=== PATIENT | female | born 1990 | race Caucasian/White ===

== ENCOUNTER 2016-10-25 11:00 | Emergency (ER) | payer BC, OTHER ==
[~2016-10-25] VITALS: Ht 162.5 cm; Wt 90.7 kg
[~2016-10-25 11:00] MED LIST: AMOXICILLIN500 M3 PO; AMOXICILLIN500 MG PO; AMOXIL500 MG PO; ANAPROX DS550 MG PO; ATIVAN0.5 MG PO; AUGMENTIN 875 M1 TA1 PO; AUGMENTIN 875-875 MG PO; BACTRIM DS 8001 TA1 PO; BACTROBAN2% TP; CEPHALEXIN500 M1 PO; CIPRO250 MG PO; CIPRO500 MG PO; CLINDAMYCIN HC300 MG PO; CORTISPORIN SUS10 ML OT; CYCLOBENZAPRINE10 MG PO; FLAGYL500 MG PO; HYDROCODONE BIT1 T11 PO; KETOROLAC10 MG PO; MACROBID100 M1 PO; MOTRIN800 MG PO; Motrin,Rufen800 MG PO; NAPROSYN500 MG PO; NKHM; NORCO 5-325 TA1 EACH PO; PENICILLIN VK500 MG PO; PERCOCET 325 MG1 TA2 PO; PERCOCET 325 MG1 TA7 PO; PERIDEX118 ML MM; PREDNICOT20 MG PO; PRENATAL1 TA1 PO; PRISTIQ100 MG PO; PRISTIQ50 MG PO; PROCARDIA10 MG; PYRIDIUM200 M1 PO; Peridex 473 ML473 ML PO; ROBAXIN500 MG PO; TOPAMAX25 M3 PO; TRAMADOL HCL50 MG PO; TYLENOL WITH CO1 TA1 PO; TYLENOL325 M1 PO; ULTRAM50 MG PO; VENLAFAXINE H37.5 M5 PO; WYMOX500 MG PO; ZITHROMAX Z PA250 MG PO; ZOFRAN ODT4 MG SL; ZOFRAN4 MG PO; ZOLOFT50 MG PO; Zofran4 MG PO
[2016-10-25] MEDS ORDERED: NORCO 5-325 TA1 EACH PO (11:10)
[2016-10-25] MEDS ORDERED: VRAYLAR3 MG PO (11:11)
[2016-10-25 11:31] LABS: BILIRUBIN NEGATIVE (NEGATIVE); BLOOD 2+ (NEGATIVE); CLARITY SL CLOUDY (CLEAR); COLOR YELLOW (YELLOW); GLUCOSE NEGATIVE (NEGATIVE); KETONE TRACE (NEGATIVE); LEUKO ESTERASE NEGATIVE (NEGATIVE); NITRITE NEGATIVE (NEGATIVE); SPECIFIC GRAVITY 1.025 (1.005-1.030); UROBILINOGEN 0.2 E.U./dl (0.2-1.0)
[2016-10-25 11:40] LABS: MUCOUS 1+; URIC ACID CRYSTALS M
[2016-10-25 11:49] LABS: BASO % 0.4 % (0.0-1.0); EOS # 0.3 10*3/uL (0.0-0.4); EOS % 3.1 % (1.0-4.0); HEMATOCRIT 39.4 % (37.0-47.0); LYMPH # 1.7 10*3/uL (1.3-4.4); LYMPH % 18.3 % (27.0-41.0); MEAN CELL VOLUME 87.8 fl (81.0-99.0); MONO # 0.7 10*3/uL (0.1-1.0); MONO % 7.1 % (3.0-9.0); NEUT # 6.6 10*3/uL (2.3-7.9); NEUT % 70.9 % (47.0-73.0); PLATELET COUNT AUTOMATED 294 10*3/uL (130-400); RED BLOOD COUNT 4.49 10*6/uL (4.10-5.10); RED CELL DISTRI WIDTH 12.6 % (0-14.5); WHITE BLOOD COUNT 9.3 10*3/uL (4.8-10.8)
[2016-10-25 12:04] LABS: ALBUMIN 3.4 gm/dl (3.1-4.5); BUN 9 mg/dl (7-24); CHLORIDE 107 mmol/L (98-107); CREATININE 0.79 mg/dL (0.55-1.02); LIPASE 147 U/L (73-393); SGOT/AST 18 IU/L (3-35); SGPT/ALT 27 U/L (12-78); SODIUM 140 mmol/L (136-145); TOTAL PROTEIN 6.8 gm/dL (6.4-8.2)
[2016-10-25 12:08] LABS: ALKALINE PHOSPHATASE 67 U/L (45-117); CPK 89 U/L (26-192)
[2016-10-25 12:10] LABS: BETA-HCG, QUANT < 1.0 mIU/mL (1-3); CKMB < 0.5 ng/ml (0.5-3.6); TROPONIN I < 0.015 ng/ml (<0.045)
== END 2016-10-25 14:04 | disposition home or self-care (01) ==
LOC: ED 11:00
PROVIDERS: Internal Medicine
DX: R10.12 Left upper quadrant pain (principal); R11.0 Nausea; Z79.899 Other long term (current) drug therapy; F17.200 Nicotine dependence, unspecified, uncomplicated

== ENCOUNTER → 2016-11-06 | Outpatient (CLI) | payer BC, OTHER ==
[~2016-11-06] MED LIST changes: +VRAYLAR3 MG PO
== END | disposition home or self-care (01) ==
LOC: MAMMO 13:18
DX: N63 Unspecified lump in breast (principal)

== ENCOUNTER 2016-12-02 11:48 | Emergency (ER) | payer BC, OTHER ==
[~2016-12-02] VITALS: Wt 90.7 kg
[2016-12-02] MEDS ORDERED: NEURONTIN300 MG PO (11:55)
[2016-12-02] MEDS ORDERED: ARIPIPRAZOLE2 MG PO (11:55)
[2016-12-02 12:24] LABS: BILIRUBIN NEGATIVE (NEGATIVE); BLOOD 1+ (NEGATIVE); CLARITY CLEAR (CLEAR); COLOR YELLOW (YELLOW); GLUCOSE NEGATIVE (NEGATIVE); KETONE NEGATIVE (NEGATIVE); LEUKO ESTERASE NEGATIVE (NEGATIVE); NITRITE NEGATIVE (NEGATIVE); UROBILINOGEN 0.2 E.U./dl (0.2-1.0)
[2016-12-02 12:30] LABS: BASO # 0.1 10*3/uL (0.0-0.1); BASO % 0.5 % (0.0-1.0); EOS # 0.3 10*3/uL (0.0-0.4); HEMATOCRIT 38.3 % (37.0-47.0); HEMOGLOBIN 12.4 g/dl (12.0-16.0); LYMPH # 1.8 10*3/uL (1.3-4.4); LYMPH % 19.8 % (27.0-41.0); MEAN CELL VOLUME 84.5 fl (81.0-99.0); MEAN CORPUSCULAR HGB 27.4 pg (27.0-31.0); MEAN CORPUSCULAR HGB CONC 32.4 g/dl (33.0-37.0); MEAN PLATELET VOLUME 10.3 fl (9.6-12.3); MONO # 0.7 10*3/uL (0.1-1.0); MONO % 7.9 % (3.0-9.0); NEUT # 6.3 10*3/uL (2.3-7.9); NEUT % 68.6 % (47.0-73.0); PLATELET COUNT AUTOMATED 334 10*3/uL (130-400); RED BLOOD COUNT 4.53 10*6/uL (4.10-5.10); RED CELL DISTRI WIDTH 12.6 % (0-14.5); WHITE BLOOD COUNT 9.2 10*3/uL (4.8-10.8)
[2016-12-02 12:33] LABS: BACTERIA 1+
[2016-12-02 12:47] LABS: ALBUMIN 3.1 gm/dl (3.1-4.5); ALKALINE PHOSPHATASE 69 U/L (45-117); BUN 6 mg/dl (7-24); CHLORIDE 107 mmol/L (98-107); CREATININE 0.81 mg/dL (0.55-1.02); LIPASE 106 U/L (73-393); SGOT/AST 12 IU/L (3-35); SGPT/ALT 17 U/L (12-78); SODIUM 139 mmol/L (136-145); TOTAL PROTEIN 6.6 gm/dL (6.4-8.2)
[2016-12-02] MEDS ORDERED: PHENERGAN25 M3 PO (13:56)
[2016-12-02] MEDS ORDERED: FLAGYL500 MG PO (13:56)
[2016-12-02] MEDS ORDERED: CIPRO500 MG PO (13:56)
== END 2016-12-02 14:25 | disposition home or self-care (01) ==
LOC: ED 11:48
PROVIDERS: Physician Assistant
DX: K52.9 Noninfective gastroenteritis and colitis, unspecified (principal); R10.84 Generalized abdominal pain; F17.200 Nicotine dependence, unspecified, uncomplicated; Z90.711 Acquired absence of uterus with remaining cervical stump; Z79.899 Other long term (current) drug therapy

== ENCOUNTER → 2017-01-04 | Day surgery (SDC) | payer BC, OTHER ==
[~2017-01-04] VITALS: Ht 162.5 cm; Wt 90.7 kg
[~2017-01-04] MED LIST changes: +ABILIFY5 MG PO; +ARIPIPRAZOLE2 MG PO; +GAVISCON ES TA1 EACH PO; +NEURONTIN300 MG PO; +PHENERGAN25 M3 PO; +PROTONIX IV40 MG PO; +SUBOXONE 8 MG-1 EACH PO; +VISTARIL50 MG PO
--- NOTE | ~2017-01-04 | O ---
[place], [place] OPERATIVE NOTE NAME: SYLVIA MARK UNIT #: [id number] ROOM: DOCTOR: PARDEEP NASH MD BIRTHDATE: [birth year] DOS: 01/04/2017 GASTROENDOSCOPIC REPORT. INDICATIONS: A 26-year-old patient who has presented with chief complaint of abdominal pain, nausea, vomiting, diarrhea. The patient has been on trial of Cipro and Flagyl therapy. The patient is consuming 4-5 cans of carbonated sodas including Mountain Dew. bowel wall thickening has been reported. She has been taking Zantac periodically, did not help. ALLERGIES: No known medication. FAMILY HISTORY: Noncontributory. PAST SURGICAL HISTORY: Partial hysterectomy, right thumb. PAST MEDICAL HISTORY: Endometriosis. PROCEDURE: Today's procedure part of investigation is colonoscopy, panendoscopy. PREMEDICATION: Versed and Diprivan. SCOPE: Olympus forward-viewing colonoscope 10L video. REPORT: After putting the patient in the left lateral position and after application of lubricant to rectal pouch and digital examination, scope was introduced. Thereafter, under direct visualization, I advanced through the length of colon without difficulty. There is no gross ulceration or pathology; however, the mucosa looks slightly edematous. Therefore, random biopsy from transverse colon, descending colon was obtained. Base of the cecum explored, appendiceal orifice identified, and ileocecal valve was defined. Air was suctioned out. The patient was extubated, tolerated procedure well. IMPRESSION: Normal colonoscopic examination with mild edema of the mucosa, status post biopsy. PLAN AND DISCUSSION: We are going to proceed with panendoscopy. [place], [place] OPERATIVE NOTE NAME: SYLVIA MARK UNIT #: [id number] ROOM: DOCTOR: PARDEEP NASH MD BIRTHDATE: [birth year] PARDEEP NASH MD CM:OPRECORD:OPERATIVE NOTE [id number] RICHELLE NASH MD 01/07/17 0755 [email or web address] [email or web address]
--- NOTE | ~2017-01-04 | O ---
[place], [place] OPERATIVE NOTE NAME: SYLVIA MARK UNIT #: [id number] ROOM: DOCTOR: PARDEEP NASH MD BIRTHDATE: [birth year] DOS: 01/04/2017 GASTROENDOSCOPIC REPORT. INDICATIONS: This is a 26-year-old patient who has presented with chief complaint of epigastric abdominal pain, dyspepsia, has been taking periodic ibuprofen as well as drinking 5 cans of Mountain Dew per day and other carbonated sodas as well as being on Suboxone visits to the Emergency Room with edema of the bowel. PROCEDURE: Today's procedure part of investigation is panendoscopy plus biopsy. PREMEDICATION: Versed and Diprivan. SCOPE: Olympus forward-viewing gastroscope Q10 video. REPORT: After putting the patient in the left lateral position and after application of lubricant to the scope, the scope was introduced; thereafter, under direct visualization, advanced through the length of the esophagus without difficulty. Small hiatal hernia was noticed, bile reflux gastritis seen. Diffuse erosions at the cardia of the stomach was noticed. Antrum was biopsied for H. pylori. Duodenal bulb, second and third part within normal limits. Photographic series have been obtained from the gastric pouch. The patient extubated, tolerated procedure well. IMPRESSION: Bile reflux gastritis, gastric erosions, small hiatal hernia. PLAN AND DISCUSSION: We are going to start this patient on Protonix 40 mg 1 daily, if not agreeable by insurance, then we will switch to omeprazole 40 mg daily. The patient is strictly advised to abstain from smoking and avoiding 5 cans of carbonated soda per day, avoiding ibuprofen and antireflux measures with elevation of the head of the bed. Antacid of choice to be Gaviscon Extra Strength 1 at bedtime, clinical reassessment. Thank you again. [place], [place] OPERATIVE NOTE NAME: SYLVIA MARK UNIT #: [id number] ROOM: DOCTOR: PARDEEP NASH MD BIRTHDATE: [birth year] PARDEEP NASH MD CM:NATANECORD:OPERATIVE NOTE [id number] PARDEEP NASH MD 01/04/17 1216 interface
[2017-01-04 10:00] VITALS: BP 103/54
[2017-01-04 11:30] VITALS: BP 96/60
[2017-01-04 11:45] VITALS: BP 114/60
[2017-01-04 12:00] VITALS: BP 116/64
== END | disposition home or self-care (01) ==
LOC: SDC 00:49
DX: K29.50 Unspecified chronic gastritis without bleeding (principal); K51.90 Ulcerative colitis, unspecified, without complications; K25.9 Gastric ulcer, unspecified as acute or chronic, without hemorrhage or perforation; K44.9 Diaphragmatic hernia without obstruction or gangrene; Z90.710 Acquired absence of both cervix and uterus; Z98.890 Other specified postprocedural states; K21.9 Gastro-esophageal reflux disease without esophagitis; F41.9 Anxiety disorder, unspecified; F32.9 Major depressive disorder, single episode, unspecified; F17.210 Nicotine dependence, cigarettes, uncomplicated; Z91.018 Allergy to other foods

== ENCOUNTER → 2017-07-01 | Outpatient (CLI) | payer BC, OTHER ==
[2017-07-01 09:52] LABS: BASO % 0.4 % (0.0-1.0); EOS # 0.1 10*3/uL (0.0-0.4); HEMATOCRIT 43.4 % (37.0-47.0); LYMPH # 1.6 10*3/uL (1.3-4.4); LYMPH % 22.7 % (27.0-41.0); MEAN CELL VOLUME 89.3 fl (81.0-99.0); MEAN CORPUSCULAR HGB 28.8 pg (27.0-31.0); MEAN CORPUSCULAR HGB CONC 32.3 g/dl (33.0-37.0); MEAN PLATELET VOLUME 11.4 fl (9.6-12.3); MONO # 0.5 10*3/uL (0.1-1.0); NEUT # 4.9 10*3/uL (2.3-7.9); NEUT % 67.6 % (47.0-73.0); PLATELET COUNT AUTOMATED 252 10*3/uL (130-400); RED BLOOD COUNT 4.86 10*6/uL (4.10-5.10); WHITE BLOOD COUNT 7.2 10*3/uL (4.8-10.8)
[2017-07-01 10:04] LABS: ALBUMIN 3.6 gm/dl (3.1-4.5); ALKALINE PHOSPHATASE 67 U/L (45-117); BUN 8 mg/dl (7-24); CHLORIDE 109 mmol/L (98-107); SGOT/AST 14 IU/L (3-35); SGPT/ALT 22 U/L (12-78); SODIUM 142 mmol/L (136-145); TOTAL PROTEIN 6.8 gm/dL (6.4-8.2); URIC ACID 5.8 mg/dL (2.6-6.0)
[2017-07-02 08:10] LABS: RHEUMATOID ARTHRITIS FACTOR <10.0 IU/mL (0.0-13.9)
== END | disposition home or self-care (01) ==
LOC: LAB 09:01
PROVIDERS: Nurse Practitioner Family
DX: M25.50 Pain in unspecified joint (principal); R53.83 Other fatigue

== ENCOUNTER 2017-08-26 19:03 | Emergency (ER) | payer OTHER ==
[~2017-08-26] VITALS: Ht 162.5 cm; Wt 72.6 kg
[2017-08-26] MEDS ORDERED: PREDNISONE10 MG PO (19:10)
[2017-08-26] MEDS ORDERED: LEXAPRO10 MG PO (19:29)
[2017-08-26] MEDS ORDERED: COGENTIN0.5 MG PO (19:30)
== END 2017-08-26 19:32 | disposition home or self-care (01) ==
LOC: ED 19:03
DX: M77.9 Enthesopathy, unspecified (principal); M25.531 Pain in right wrist; R03.0 Elevated blood-pressure reading, without diagnosis of hypertension; Z90.710 Acquired absence of both cervix and uterus; Z98.890 Other specified postprocedural states; Z79.899 Other long term (current) drug therapy; Z91.018 Allergy to other foods

== ENCOUNTER 2017-11-25 17:46 | Emergency (ER) | payer OTHER ==
[~2017-11-25] VITALS: Ht 162.5 cm; Wt 72.6 kg
[~2017-11-25 17:46] MED LIST changes: +COGENTIN0.5 MG PO; +LEXAPRO10 MG PO; +PREDNISONE10 MG PO
[2017-11-25 18:11] LABS: BASO # 0.1 10*3/uL (0.0-0.1); BASO % 0.4 % (0.0-1.0); EOS # 0.2 10*3/uL (0.0-0.4); EOS % 1.4 % (1.0-4.0); HEMATOCRIT 42.2 % (37.0-47.0); HEMOGLOBIN 14.1 g/dl (12.0-16.0); LYMPH # 2.7 10*3/uL (1.3-4.4); LYMPH % 22.2 % (27.0-41.0); MEAN CELL VOLUME 91.3 fl (81.0-99.0); MEAN CORPUSCULAR HGB 30.5 pg (27.0-31.0); MEAN CORPUSCULAR HGB CONC 33.4 g/dl (33.0-37.0); MEAN PLATELET VOLUME 10.4 fl (9.6-12.3); MONO # 0.8 10*3/uL (0.1-1.0); MONO % 6.3 % (3.0-9.0); NEUT # 8.5 10*3/uL (2.3-7.9); NEUT % 69.5 % (47.0-73.0); PLATELET COUNT AUTOMATED 306 10*3/uL (130-400); RED BLOOD COUNT 4.62 10*6/uL (4.10-5.10); RED CELL DISTRI WIDTH 12.5 % (0-14.5); WHITE BLOOD COUNT 12.2 10*3/uL (4.8-10.8)
[2017-11-25 18:13] LABS: BILIRUBIN NEGATIVE (NEGATIVE); BLOOD TRACE-INTACT (NEGATIVE); CLARITY SL CLOUDY (CLEAR); COLOR YELLOW (YELLOW); GLUCOSE NEGATIVE (NEGATIVE); KETONE NEGATIVE (NEGATIVE); LEUKO ESTERASE NEGATIVE (NEGATIVE); NITRITE NEGATIVE (NEGATIVE); UROBILINOGEN 0.2 E.U./dl (0.2-1.0)
[2017-11-25 18:20] LABS: WBC 0-2 wbc/hpf (0-5)
[2017-11-25 18:27] LABS: ALBUMIN 3.8 gm/dl (3.1-4.5); ALKALINE PHOSPHATASE 64 U/L (45-117); BUN 7 mg/dl (7-24); CHLORIDE 108 mmol/L (98-107); LIPASE 124 U/L (73-393); POTASSIUM 3.8 mmol/L (3.5-5.1); SGOT/AST 8 IU/L (3-35); SGPT/ALT 21 U/L (12-78); SODIUM 140 mmol/L (136-145); TOTAL PROTEIN 7.1 gm/dL (6.4-8.2)
[2017-11-25] MEDS ORDERED: ZOFRAN4 MG PO (19:22)
[2017-11-25] MEDS ORDERED: CIPRO500 MG PO (19:22)
[2017-11-25] MEDS ORDERED: FLAGYL500 MG PO (19:22)
== END 2017-11-25 19:40 | disposition home or self-care (01) ==
LOC: ED 17:46
PROVIDERS: Nurse Practitioner Family
DX: R10.32 Left lower quadrant pain (principal); F17.210 Nicotine dependence, cigarettes, uncomplicated; Z91.018 Allergy to other foods; Z88.8 Allergy status to other drugs, medicaments and biological substances; Z79.899 Other long term (current) drug therapy

== ENCOUNTER 2018-01-09 18:15 | Emergency (ER) | payer OTHER ==
[~2018-01-09] VITALS: Ht 162.5 cm; Wt 77.1 kg
[2018-01-09] MEDS ORDERED: NAPROSYN500 MG PO (18:50)
[2018-01-09] MEDS ORDERED: CLINDAMYCIN HC300 MG PO (18:50)
== END 2018-01-09 19:10 | disposition home or self-care (01) ==
LOC: ED 18:15
DX: K08.89 Other specified disorders of teeth and supporting structures (principal); Z91.018 Allergy to other foods; Z79.899 Other long term (current) drug therapy

== ENCOUNTER 2018-06-24 11:40 | Emergency (ER) | payer MEDICAID ==
[~2018-06-24] VITALS: Wt 90.7 kg
[2018-06-24] MEDS ORDERED: AMOXICILLIN500 M2 PO (13:30)
[2018-06-24] MEDS ORDERED: FLONASE ALLERG9.9 ML NAS (13:30)
[2018-06-24] MEDS ORDERED: MEDROL DOSEPAK4 MG PO (13:30)
[2018-06-24] MEDS ORDERED: SUDOGEST60 MG PO (13:30)
== END 2018-06-24 13:35 | disposition home or self-care (01) ==
LOC: ED 11:40
DX: J01.90 Acute sinusitis, unspecified (principal); J20.9 Acute bronchitis, unspecified; F17.200 Nicotine dependence, unspecified, uncomplicated; Z91.018 Allergy to other foods; Z79.2 Long term (current) use of antibiotics; Z79.899 Other long term (current) drug therapy; Z90.710 Acquired absence of both cervix and uterus

== ENCOUNTER 2018-07-18 20:48 | Emergency (ER) | payer OTHER ==
[~2018-07-18] VITALS: Ht 162.5 cm; Wt 88.0 kg
[~2018-07-18 20:48] MED LIST changes: +AMOXICILLIN500 M2 PO; +FLONASE ALLERG9.9 ML NAS; +MEDROL DOSEPAK4 MG PO; +SUDOGEST60 MG PO
[2018-07-18 23:18] LABS: BILIRUBIN NEGATIVE (NEGATIVE); BLOOD 2+ (NEGATIVE); CLARITY CLOUDY (CLEAR); COLOR YELLOW (YELLOW); GLUCOSE NEGATIVE (NEGATIVE); KETONE NEGATIVE (NEGATIVE); LEUKO ESTERASE 1+ (NEGATIVE); NITRITE NEGATIVE (NEGATIVE); PH 5.5 (5.0-9.0); SPECIFIC GRAVITY >= 1.030 (1.005-1.030)
[2018-07-18 23:33] LABS: EPITHELIAL CELLS 35-40; RBC 21-30 rbc/hpf (0-2)
[2018-07-18] MEDS ORDERED: SEPTDS PO (23:37)
[2018-07-18] MEDS ORDERED: PYRIDIUM100 MG PO (23:40)
== END 2018-07-18 23:54 | disposition home or self-care (01) ==
LOC: ED 20:48
PROVIDERS: Physician Assistant
DX: N39.0 Urinary tract infection, site not specified (principal); Z79.899 Other long term (current) drug therapy; Z91.018 Allergy to other foods; Z90.710 Acquired absence of both cervix and uterus; Z87.448 Personal history of other diseases of urinary system

== ENCOUNTER 2018-07-25 21:04 | Emergency (ER) | payer OTHER ==
[~2018-07-25] VITALS: Ht 162.5 cm; Wt 88.0 kg
[~2018-07-25 21:04] MED LIST changes: +PYRIDIUM100 MG PO; +SEPTDS PO
[2018-07-25] MEDS ORDERED: VIBRAMYCIN100 MG PO (22:10)
== END 2018-07-25 22:30 | disposition home or self-care (01) ==
LOC: ED 21:04
DX: S50.361A Insect bite (nonvenomous) of right elbow, initial encounter (principal); Z79.899 Other long term (current) drug therapy; Z91.018 Allergy to other foods; W57.XXXA Bitten or stung by nonvenomous insect and other nonvenomous arthropods, initial encounter; Y93.89 Activity, other specified; Y92.89 Other specified places as the place of occurrence of the external cause; Y99.8 Other external cause status

== ENCOUNTER 2018-09-20 19:35 | Emergency (ER) | payer OTHER ==
[~2018-09-20] VITALS: Ht 162.5 cm; Wt 90.7 kg
[~2018-09-20 19:35] MED LIST changes: +VIBRAMYCIN100 MG PO
[2018-09-20 20:16] LABS: BILIRUBIN NEGATIVE (NEGATIVE); BLOOD TRACE-INTACT (NEGATIVE); CLARITY SL CLOUDY (CLEAR); COLOR ORANGE (YELLOW); GLUCOSE 1+ (NEGATIVE); KETONE TRACE (NEGATIVE); LEUKO ESTERASE 1+ (NEGATIVE); NITRITE POSITIVE (NEGATIVE); PH 6.5 (5.0-9.0); SPECIFIC GRAVITY 1.025 (1.005-1.030); UROBILINOGEN >= 8.0 E.U./dl (0.2-1.0)
[2018-09-20 20:31] LABS: BACTERIA 1+; RBC 0-2 rbc/hpf (0-2); WBC 51-100 wbc/hpf (0-5)
[2018-09-20] MEDS ORDERED: CEFUROXIME AXE500 MG PO (20:38)
[2018-09-20] MEDS ORDERED: PREDNISONE50 MG PO (20:38)
== END 2018-09-20 20:40 | disposition home or self-care (01) ==
LOC: ED 19:35
PROVIDERS: Nurse Practitioner Family
DX: J20.9 Acute bronchitis, unspecified (principal); N39.0 Urinary tract infection, site not specified; F17.200 Nicotine dependence, unspecified, uncomplicated; Z91.018 Allergy to other foods; Z79.899 Other long term (current) drug therapy; Z90.710 Acquired absence of both cervix and uterus

== ENCOUNTER 2018-09-29 17:17 | Emergency (ER) | payer OTHER ==
[~2018-09-29] VITALS: Ht 162.5 cm; Wt 90.7 kg
[~2018-09-29 17:17] MED LIST changes: +CEFUROXIME AXE500 MG PO; +PREDNISONE50 MG PO
== END 2018-09-29 20:05 | disposition home or self-care (01) ==
LOC: ED 17:17
DX: S93.402A Sprain of unspecified ligament of left ankle, initial encounter (principal); S83.92XA Sprain of unspecified site of left knee, initial encounter; Z91.018 Allergy to other foods; Z79.899 Other long term (current) drug therapy; X50.1XXA Overexertion from prolonged static or awkward postures, initial encounter; Y93.01 Activity, walking, marching and hiking; Y92.89 Other specified places as the place of occurrence of the external cause; Y99.8 Other external cause status

== ENCOUNTER 2018-12-11 17:38 | Emergency (ER) | payer OTHER ==
[~2018-12-11] VITALS: Ht 162.5 cm; Wt 90.7 kg
[2018-12-11] MEDS ORDERED: PRISTIQ50 MG PO (17:42)
[2018-12-11] MEDS ORDERED: BENADRYL ALLERG25 M5 PO (17:42)
[2018-12-11] MEDS ORDERED: SUBOXONE 8 MG-1 EACH SL (17:43)
[2018-12-11] MEDS ORDERED: VALERIAN ROOT100 MG PO (17:43)
[2018-12-11 18:12] LABS: BILIRUBIN NEGATIVE (NEGATIVE); BLOOD TRACE-INTACT (NEGATIVE); CLARITY SL CLOUDY (CLEAR); COLOR ORANGE (YELLOW); GLUCOSE 1+ (NEGATIVE); KETONE TRACE (NEGATIVE); LEUKO ESTERASE TRACE (NEGATIVE); NITRITE POSITIVE (NEGATIVE); PH 6.5 (5.0-9.0); UROBILINOGEN >= 8.0 E.U./dl (0.2-1.0)
[2018-12-11 18:25] LABS: BACTERIA TRACE
[2018-12-11 18:26] LABS: RBC 0-2 rbc/hpf (0-2)
[2018-12-11 18:52] LABS: BASO % 0.4 % (0.0-1.0); EOS # 0.1 10*3/uL (0.0-0.4); EOS % 0.9 % (1.0-4.0); HEMATOCRIT 42.7 % (37.0-47.0); HEMOGLOBIN 14.3 g/dl (12.0-16.0); LYMPH % 28.2 % (27.0-41.0); MEAN CELL VOLUME 88.4 fl (81.0-99.0); MEAN CORPUSCULAR HGB 29.6 pg (27.0-31.0); MEAN CORPUSCULAR HGB CONC 33.5 g/dl (33.0-37.0); MEAN PLATELET VOLUME 10.6 fl (9.6-12.3); MONO # 0.6 10*3/uL (0.1-1.0); MONO % 5.7 % (3.0-9.0); NEUT # 6.9 10*3/uL (2.3-7.9); NEUT % 64.5 % (47.0-73.0); PLATELET COUNT AUTOMATED 344 10*3/uL (130-400); RED BLOOD COUNT 4.83 10*6/uL (4.10-5.10); RED CELL DISTRI WIDTH 12.2 % (0-14.5); WHITE BLOOD COUNT 10.6 10*3/uL (4.8-10.8)
[2018-12-11 19:06] LABS: ALBUMIN 3.8 gm/dl (3.1-4.5); ALKALINE PHOSPHATASE 68 U/L (45-117); BUN 5 mg/dl (7-24); CHLORIDE 106 mmol/L (98-107); CREATININE 0.88 mg/dL (0.55-1.02); LIPASE 90 U/L (73-393); SGOT/AST 15 IU/L (3-35); SGPT/ALT 22 U/L (12-78); SODIUM 138 mmol/L (136-145); TOTAL PROTEIN 7.3 gm/dL (6.4-8.2)
[2018-12-11] MEDS ORDERED: AMINOPHYLLIN200 MG PO (21:02)
== END 2018-12-11 21:36 | disposition home or self-care (01) ==
LOC: ED 17:38
PROVIDERS: Nurse Practitioner Family
DX: N39.0 Urinary tract infection, site not specified (principal); R19.4 Change in bowel habit; Z91.018 Allergy to other foods; Z79.899 Other long term (current) drug therapy; Z90.710 Acquired absence of both cervix and uterus

== ENCOUNTER 2019-01-05 20:05 | Emergency (ER) | payer OTHER ==
[~2019-01-05] VITALS: Ht 162.5 cm; Wt 90.7 kg
[~2019-01-05 20:05] MED LIST changes: +AMINOPHYLLIN200 MG PO; +BENADRYL ALLERG25 M5 PO; +SUBOXONE 8 MG-1 EACH SL; +VALERIAN ROOT100 MG PO
[2019-01-05 21:17] LABS: BILIRUBIN NEGATIVE (NEGATIVE); BLOOD NEGATIVE (NEGATIVE); CLARITY CLEAR (CLEAR); COLOR YELLOW (YELLOW); GLUCOSE NEGATIVE (NEGATIVE); KETONE NEGATIVE (NEGATIVE); LEUKO ESTERASE NEGATIVE (NEGATIVE); NITRITE NEGATIVE (NEGATIVE); PH 6.5 (5.0-9.0); UROBILINOGEN 0.2 E.U./dl (0.2-1.0)
[2019-01-05 21:26] LABS: EPITHELIAL CELLS 0-2
[2019-01-05 23:31] LABS: BASO % 0.4 % (0.0-1.0); EOS # 0.2 10*3/uL (0.0-0.4); EOS % 1.9 % (1.0-4.0); HEMATOCRIT 42.3 % (37.0-47.0); HEMOGLOBIN 13.9 g/dl (12.0-16.0); LYMPH # 2.5 10*3/uL (1.3-4.4); LYMPH % 26.8 % (27.0-41.0); MEAN CELL VOLUME 90.6 fl (81.0-99.0); MEAN CORPUSCULAR HGB 29.8 pg (27.0-31.0); MEAN CORPUSCULAR HGB CONC 32.9 g/dl (33.0-37.0); MEAN PLATELET VOLUME 9.9 fl (9.6-12.3); MONO # 0.6 10*3/uL (0.1-1.0); MONO % 6.2 % (3.0-9.0); NEUT # 6.1 10*3/uL (2.3-7.9); NEUT % 64.4 % (47.0-73.0); PLATELET COUNT AUTOMATED 332 10*3/uL (130-400); RED BLOOD COUNT 4.67 10*6/uL (4.10-5.10); RED CELL DISTRI WIDTH 12.5 % (0-14.5); WHITE BLOOD COUNT 9.5 10*3/uL (4.8-10.8)
[2019-01-05 23:45] LABS: ALBUMIN 3.9 gm/dl (3.1-4.5); ALKALINE PHOSPHATASE 61 U/L (45-117); BUN 11 mg/dl (7-24); CHLORIDE 105 mmol/L (98-107); CREATININE 0.79 mg/dL (0.55-1.02); POTASSIUM 3.9 mmol/L (3.5-5.1); SGOT/AST 12 IU/L (3-35); SGPT/ALT 21 U/L (12-78); SODIUM 137 mmol/L (136-145); TOTAL PROTEIN 7.1 gm/dL (6.4-8.2)
== END 2019-01-06 00:01 | disposition home or self-care (01) ==
LOC: ED 20:05
PROVIDERS: Emergency Medicine
DX: N30.10 Interstitial cystitis (chronic) without hematuria (principal); K21.9 Gastro-esophageal reflux disease without esophagitis; Z91.018 Allergy to other foods; Z79.899 Other long term (current) drug therapy

== ENCOUNTER 2019-03-01 19:23 | Emergency (ER) | payer OTHER ==
[~2019-03-01] VITALS: Ht 165.1 cm; Wt 90.7 kg
== END 2019-03-01 21:35 | disposition home or self-care (01) ==
LOC: ED 19:23
DX: S82.892A Other fracture of left lower leg, initial encounter for closed fracture (principal); M25.572 Pain in left ankle and joints of left foot; Z91.018 Allergy to other foods; Z79.899 Other long term (current) drug therapy; W10.8XXA Fall (on) (from) other stairs and steps, initial encounter; Y93.89 Activity, other specified; Y92.89 Other specified places as the place of occurrence of the external cause; Y99.8 Other external cause status

== ENCOUNTER 2019-06-04 15:44 | Inpatient (IN) | payer OTHER ==
[~2019-06-04] VITALS: Ht 162.6 cm; Wt 93.4 kg
[2019-06-04 15:56] VITALS: BP 121/73
[2019-06-04 16:34] LABS: BASO # 0.1 10*3/uL (0.0-0.1); BASO % 0.3 % (0.0-1.0); EOS % 0.1 % (1.0-4.0); HEMATOCRIT 39.5 % (37.0-47.0); HEMOGLOBIN 13.4 g/dl (12.0-16.0); LYMPH % 6.3 % (27.0-41.0); MEAN CORPUSCULAR HGB 29.5 pg (27.0-31.0); MEAN CORPUSCULAR HGB CONC 33.9 g/dl (33.0-37.0); MEAN PLATELET VOLUME 10.7 fl (9.6-12.3); MONO # 1.3 10*3/uL (0.1-1.0); MONO % 8.7 % (3.0-9.0); NEUT % 84.3 % (47.0-73.0); PLATELET COUNT AUTOMATED 304 10*3/uL (130-400); RED BLOOD COUNT 4.54 10*6/uL (4.10-5.10); RED CELL DISTRI WIDTH 12.1 % (0-14.5); WHITE BLOOD COUNT 15.5 10*3/uL (4.8-10.8)
[2019-06-04 16:49] LABS: ALBUMIN 3.5 gm/dl (3.1-4.5); ALKALINE PHOSPHATASE 74 U/L (45-117); BUN 8 mg/dl (7-24); CHLORIDE 105 mmol/L (98-107); LDH 175 U/L (84-246); LIPASE 44 U/L (73-393); POTASSIUM 3.4 mmol/L (3.5-5.1); SGOT/AST 18 IU/L (3-35); SGPT/ALT 31 U/L (12-78); SODIUM 134 mmol/L (136-145); TOTAL PROTEIN 7.9 gm/dL (6.4-8.2)
[2019-06-04 16:50] LABS: B-hCG (QUALITATIVE) NEGATIVE (NEGATIVE)
[2019-06-04 16:56] LABS: BILIRUBIN NEGATIVE (NEGATIVE); BLOOD 2+ (NEGATIVE); CLARITY CLOUDY (CLEAR); COLOR YELLOW (YELLOW); GLUCOSE NEGATIVE (NEGATIVE); KETONE 1+ (NEGATIVE); LEUKO ESTERASE 2+ (NEGATIVE); NITRITE POSITIVE (NEGATIVE); SPECIFIC GRAVITY 1.005 (1.005-1.030); UROBILINOGEN 0.2 E.U./dl (0.2-1.0)
[2019-06-04 17:00] LABS: ACT PARTIAL THROMBO TIME 28.6 SECONDS (20.0-32.1)
[2019-06-04 17:02] LABS: URINE AMPHETAMINES < 1000 (1000ng/ml); URINE BARBITURATES < 200 (200ng/ml); URINE BENZODIAZEPINES < 200 (200ng/ml); URINE CANNABINOIDS (THC) > 50 (50ng/ml); URINE COCAINE < 300 (300ng/ml); URINE METHADONE < 300 (300ng/ml); URINE OPIATES < 300 (300ng/ml)
[2019-06-04 17:03] LABS: URINE PHENCYCLIDINE < 25 (25ng/ml)
[2019-06-04 17:05] LABS: BACTERIA 2+; WBC TNTC wbc/hpf (0-5)
[2019-06-04 19:50] VITALS: BP 120/70
[2019-06-04 20:00] VITALS: BP 123/86
[2019-06-04] MEDS ORDERED: OXCARBAZEPINE300 M1 PO (20:08)
[2019-06-04] MEDS ORDERED: MIRTAZAPINE15 M2 PO (20:09)
[2019-06-04] MEDS ORDERED: QUETIAPINE FUM100 M3 PO (20:09)
[2019-06-05] VITALS: BP 121/54
[2019-06-05 06:10] LABS: BASO % 0.3 % (0.0-1.0); EOS % 0.3 % (1.0-4.0); HEMATOCRIT 34.1 % (37.0-47.0); HEMOGLOBIN 11.1 g/dl (12.0-16.0); LYMPH # 1.2 10*3/uL (1.3-4.4); LYMPH % 10.4 % (27.0-41.0); MEAN CELL VOLUME 87.9 fl (81.0-99.0); MEAN CORPUSCULAR HGB 28.6 pg (27.0-31.0); MEAN CORPUSCULAR HGB CONC 32.6 g/dl (33.0-37.0); MEAN PLATELET VOLUME 10.8 fl (9.6-12.3); MONO # 1.2 10*3/uL (0.1-1.0); MONO % 10.3 % (3.0-9.0); NEUT # 9.1 10*3/uL (2.3-7.9); NEUT % 78.4 % (47.0-73.0); PLATELET COUNT AUTOMATED 250 10*3/uL (130-400); RED BLOOD COUNT 3.88 10*6/uL (4.10-5.10); RED CELL DISTRI WIDTH 12.2 % (0-14.5); WHITE BLOOD COUNT 11.6 10*3/uL (4.8-10.8)
[2019-06-05 06:46] LABS: ALBUMIN 2.8 gm/dl (3.1-4.5); ALKALINE PHOSPHATASE 82 U/L (45-117); BUN 9 mg/dl (7-24); CHLORIDE 110 mmol/L (98-107); CHOLESTEROL 148 mg/dL (<200); CREATININE 1.08 mg/dL (0.55-1.02); FREE T4 1.03 ng/dl (0.76-1.46); HDL CHOLESTEROL 23 mg/dl (40-60); LDL CHOLESTEROL 100 mg/dL (9-159); PHOSPHOROUS 2.1 mg/dL (2.5-4.9); POTASSIUM 3.2 mmol/L (3.5-5.1); SGOT/AST 71 IU/L (3-35); SGPT/ALT 58 U/L (12-78); SODIUM 140 mmol/L (136-145); TOTAL PROTEIN 6.3 gm/dL (6.4-8.2); TRIGLYCERIDES 123 mg/dl (<150); VLDL CHOLESTEROL 25 mg/dL (6-40)
[2019-06-05 07:08] LABS: VITAMIN D, 25-HYDROXY 17.1 ng/mL (30-100)
[2019-06-05 08:00] VITALS: BP 119/66
[2019-06-05 12:00] VITALS: BP 103/43
[2019-06-05 16:00] VITALS: BP 117/65
[2019-06-05 20:00] VITALS: BP 124/68
[2019-06-06] VITALS: BP 121/86
[2019-06-06 06:06] LABS: BASO # 0.1 10*3/uL (0.0-0.1); BASO % 0.5 % (0.0-1.0); EOS # 0.2 10*3/uL (0.0-0.4); EOS % 1.9 % (1.0-4.0); HEMATOCRIT 35.4 % (37.0-47.0); HEMOGLOBIN 11.7 g/dl (12.0-16.0); LYMPH # 1.8 10*3/uL (1.3-4.4); LYMPH % 16.7 % (27.0-41.0); MEAN CELL VOLUME 88.9 fl (81.0-99.0); MEAN CORPUSCULAR HGB 29.4 pg (27.0-31.0); MEAN CORPUSCULAR HGB CONC 33.1 g/dl (33.0-37.0); MEAN PLATELET VOLUME 10.9 fl (9.6-12.3); MONO # 1.2 10*3/uL (0.1-1.0); MONO % 11.6 % (3.0-9.0); NEUT # 7.3 10*3/uL (2.3-7.9); PLATELET COUNT AUTOMATED 264 10*3/uL (130-400); RED BLOOD COUNT 3.98 10*6/uL (4.10-5.10); RED CELL DISTRI WIDTH 12.3 % (0-14.5); WHITE BLOOD COUNT 10.5 10*3/uL (4.8-10.8)
[2019-06-06 06:35] LABS: BUN 7 mg/dl (7-24); CHLORIDE 111 mmol/L (98-107); CREATININE 0.85 mg/dL (0.55-1.02); POTASSIUM 3.4 mmol/L (3.5-5.1); SODIUM 143 mmol/L (136-145)
[2019-06-06] MEDS ORDERED: VITAMIN D350 MC2 PO (07:58)
[2019-06-06] MEDS ORDERED: CIPRO500 MG PO (07:58)
[2019-06-06] MEDS ORDERED: PHARMASSURE V500 MCG PO (07:58)
[2019-06-06] MEDS ORDERED: ZOFRAN4 MG PO (07:58)
[2019-06-06 08:00] VITALS: BP 124/76
== END 2019-06-06 09:50 | disposition home or self-care (01) | DRG 872 ==
LOC: ED 15:44 → 4E 18:01 → EDHOLD 18:01 → 4E 18:45
PROVIDERS: Emergency Medicine; Hospitalist; ADMIT Internal Medicine
DX: A41.9 Sepsis, unspecified organism (principal); K51.919 Ulcerative colitis, unspecified with unspecified complications; N12 Tubulo-interstitial nephritis, not specified as acute or chronic; E87.6 Hypokalemia; R79.89 Other specified abnormal findings of blood chemistry; F17.210 Nicotine dependence, cigarettes, uncomplicated; F41.9 Anxiety disorder, unspecified; F31.9 Bipolar disorder, unspecified; B96.20 Unspecified Escherichia coli [E. coli] as the cause of diseases classified elsewhere; F12.90 Cannabis use, unspecified, uncomplicated; Z71.6 Tobacco abuse counseling; Z90.710 Acquired absence of both cervix and uterus; Z91.018 Allergy to other foods; Z79.899 Other long term (current) drug therapy; Z80.52 Family history of malignant neoplasm of bladder; Z83.79 Family history of other diseases of the digestive system; Z83.6 Family history of other diseases of the respiratory system

== ENCOUNTER 2019-12-17 19:14 | Emergency (ER) | payer OTHER ==
[~2019-12-17] VITALS: Ht 162.5 cm; Wt 90.7 kg
[~2019-12-17 19:14] MED LIST changes: +MIRTAZAPINE15 M2 PO; +OXCARBAZEPINE300 M1 PO; +PHARMASSURE V500 MCG PO; +QUETIAPINE FUM100 M3 PO; +VITAMIN D350 MC2 PO
[2019-12-17] MEDS ORDERED: REXULTI1 MG PO (19:27)
[2019-12-17] MEDS ORDERED: GABAPENTIN400 MG PO (19:27)
[2019-12-17] MEDS ORDERED: SEPTDS PO (19:30)
== END 2019-12-17 19:58 | disposition home or self-care (01) ==
LOC: ED 19:14
DX: L02.215 Cutaneous abscess of perineum (principal); F32.9 Major depressive disorder, single episode, unspecified; F41.9 Anxiety disorder, unspecified; K21.9 Gastro-esophageal reflux disease without esophagitis; F17.200 Nicotine dependence, unspecified, uncomplicated; Z91.018 Allergy to other foods; Z79.899 Other long term (current) drug therapy

== ENCOUNTER 2020-06-16 16:55 | Emergency (ER) | payer OTHER ==
[~2020-06-16] VITALS: Ht 162.5 cm; Wt 90.7 kg
[~2020-06-16 16:55] MED LIST changes: +GABAPENTIN400 MG PO; +REXULTI1 MG PO
[2020-06-16 17:28] LABS: BILIRUBIN Negative (Negative); BLOOD 2+ (Negative); CLARITY Clear (Clear); COLOR Yellow (Yellow); GLUCOSE Negative (Negative); KETONE Trace (Negative); LEUKO ESTERASE Negative (Negative); NITRITE Negative (Negative); PH 5.5 (4.5-8.0); UROBILINOGEN 0.2 E.U./dl (0.0-1.0)
[2020-06-16 17:44] LABS: BACTERIA TRACE; MUCOUS 1+
[2020-06-16 18:48] LABS: BASO % 0.4 % (0.0-1.0); EOS # 0.2 10*3/uL (0.0-0.4); EOS % 2.3 % (1.0-4.0); HEMATOCRIT 40.5 % (37.0-47.0); LYMPH # 2.4 10*3/uL (1.3-4.4); MEAN CELL VOLUME 91.2 fl (81.0-99.0); MEAN CORPUSCULAR HGB CONC 32.8 g/dl (33.0-37.0); MEAN PLATELET VOLUME 10.2 fl (9.6-12.3); MONO # 0.7 10*3/uL (0.1-1.0); MONO % 7.1 % (3.0-9.0); NEUT # 6.2 10*3/uL (2.3-7.9); NEUT % 64.9 % (47.0-73.0); PLATELET COUNT AUTOMATED 286 10*3/uL (130-400); RED BLOOD COUNT 4.44 10*6/uL (4.10-5.10); RED CELL DISTRI WIDTH 12.7 % (0-14.5); WHITE BLOOD COUNT 9.5 10*3/uL (4.8-10.8)
[2020-06-16 19:05] LABS: ALBUMIN 3.6 gm/dl (3.1-4.5); ALKALINE PHOSPHATASE 67 U/L (45-117); BUN 11 mg/dl (7-24); CHLORIDE 105 mmol/L (98-107); CREATININE 1.07 mg/dL (0.55-1.02); LIPASE 86 U/L (73-393); POTASSIUM 3.5 mmol/L (3.5-5.1); SGOT/AST 15 IU/L (3-35); SGPT/ALT 23 U/L (12-78); SODIUM 139 mmol/L (136-145); TOTAL PROTEIN 6.8 gm/dL (6.4-8.2)
[2020-06-16 19:14] LABS: BETA-HCG, QUANT < 1.0 mIU/mL (1-3)
[2020-06-16] MEDS ORDERED: VIBRAMYCIN100 MG PO ×2 (21:56→22:15)
== END 2020-06-16 22:00 | disposition home or self-care (01) ==
LOC: ED 16:55
PROVIDERS: Emergency Medicine
DX: R30.0 Dysuria (principal); Z79.899 Other long term (current) drug therapy; Z90.711 Acquired absence of uterus with remaining cervical stump; Z98.890 Other specified postprocedural states

== ENCOUNTER → 2020-06-24 | Outpatient (CLI) | payer OTHER | END | disposition home or self-care (01) | LOC: COVID19 14:44 | PROVIDERS: ATTEND Internal Medicine | DX: Z11.52 Encounter for screening for COVID-19 (principal) ==

== ENCOUNTER 2020-07-05 19:46 | Emergency (ER) | payer OTHER ==
[~2020-07-05] VITALS: Ht 162.5 cm; Wt 90.7 kg
[2020-07-05 22:53] LABS: BASO % 0.2 % (0.0-1.0); EOS # 0.1 10*3/uL (0.0-0.4); EOS % 0.6 % (1.0-4.0); HEMATOCRIT 42.6 % (37.0-47.0); LYMPH # 1.5 10*3/uL (1.3-4.4); MEAN CELL VOLUME 88.2 fl (81.0-99.0); MEAN CORPUSCULAR HGB 29.6 pg (27.0-31.0); MEAN CORPUSCULAR HGB CONC 33.6 g/dl (33.0-37.0); MEAN PLATELET VOLUME 10.2 fl (9.6-12.3); MONO # 0.7 10*3/uL (0.1-1.0); MONO % 8.6 % (3.0-9.0); NEUT # 6.3 10*3/uL (2.3-7.9); NEUT % 73.2 % (47.0-73.0); PLATELET COUNT AUTOMATED 264 10*3/uL (130-400); RED BLOOD COUNT 4.83 10*6/uL (4.10-5.10); RED CELL DISTRI WIDTH 12.7 % (0-14.5); WHITE BLOOD COUNT 8.5 10*3/uL (4.8-10.8)
[2020-07-05 23:10] LABS: ALBUMIN 3.9 gm/dl (3.1-4.5); ALKALINE PHOSPHATASE 66 U/L (45-117); BUN 6 mg/dl (7-24); CHLORIDE 107 mmol/L (98-107); CREATININE 0.81 mg/dL (0.55-1.02); LDH 174 U/L (84-246); POTASSIUM 3.5 mmol/L (3.5-5.1); SGOT/AST 14 IU/L (3-35); SGPT/ALT 26 U/L (12-78); SODIUM 140 mmol/L (136-145); TOTAL PROTEIN 7.5 gm/dL (6.4-8.2)
[2020-07-05 23:11] LABS: TROPONIN I < 0.015 ng/ml (<0.045)
[2020-07-06] MEDS ORDERED: ZOFRAN4 MG PO (00:14)
== END 2020-07-06 01:49 | disposition home or self-care (01) ==
LOC: ED 19:46
PROVIDERS: Student in an Organized Health Care Education/Training Program
DX: U07.1 COVID-19 (principal); R11.2 Nausea with vomiting, unspecified; F12.90 Cannabis use, unspecified, uncomplicated; F17.200 Nicotine dependence, unspecified, uncomplicated; Z90.710 Acquired absence of both cervix and uterus; Z79.899 Other long term (current) drug therapy

== ENCOUNTER 2020-08-16 00:12 | Emergency (ER) | payer OTHER ==
[~2020-08-16] VITALS: Ht 162.5 cm; Wt 90.7 kg
[2020-08-16 00:53] LABS: BASO # 0.1 10*3/uL (0.0-0.1); BASO % 0.5 % (0.0-1.0); EOS # 0.3 10*3/uL (0.0-0.4); EOS % 3.3 % (1.0-4.0); LYMPH # 2.7 10*3/uL (1.3-4.4); LYMPH % 27.7 % (27.0-41.0); MEAN CELL VOLUME 89.9 fl (81.0-99.0); MEAN CORPUSCULAR HGB 29.7 pg (27.0-31.0); MEAN CORPUSCULAR HGB CONC 33.1 g/dl (33.0-37.0); MEAN PLATELET VOLUME 10.7 fl (9.6-12.3); MONO # 0.6 10*3/uL (0.1-1.0); MONO % 6.6 % (3.0-9.0); NEUT # 5.9 10*3/uL (2.3-7.9); NEUT % 61.7 % (47.0-73.0); PLATELET COUNT AUTOMATED 302 10*3/uL (130-400); RED BLOOD COUNT 4.34 10*6/uL (4.10-5.10); RED CELL DISTRI WIDTH 12.5 % (0-14.5); WHITE BLOOD COUNT 9.6 10*3/uL (4.8-10.8)
[2020-08-16 01:15] LABS: ALBUMIN 3.7 gm/dl (3.1-4.5); ALKALINE PHOSPHATASE 70 U/L (45-117); BUN 10 mg/dl (7-24); CHLORIDE 107 mmol/L (98-107); CREATININE 1.08 mg/dL (0.55-1.02); POTASSIUM 3.7 mmol/L (3.5-5.1); SGOT/AST 16 IU/L (3-35); SGPT/ALT 20 U/L (12-78); SODIUM 140 mmol/L (136-145); TOTAL PROTEIN 6.7 gm/dL (6.4-8.2)
[2020-08-16] MEDS ORDERED: PREDNISONE20 M1 PO (01:44)
== END 2020-08-16 02:15 | disposition home or self-care (01) ==
LOC: ED 00:12
PROVIDERS: Internal Medicine
DX: J04.0 Acute laryngitis (principal); F17.200 Nicotine dependence, unspecified, uncomplicated; Z79.2 Long term (current) use of antibiotics; Z79.899 Other long term (current) drug therapy; Z90.711 Acquired absence of uterus with remaining cervical stump

== ENCOUNTER 2021-06-06 00:04 | Emergency (ER) | payer OTHER ==
[~2021-06-06] VITALS: Ht 162.5 cm; Wt 81.6 kg
[~2021-06-06 00:04] MED LIST changes: +PREDNISONE20 M1 PO
[2021-06-06] MEDS ORDERED: VIBRAMYCIN100 MG PO (02:45)
== END 2021-06-06 02:51 | disposition home or self-care (01) ==
LOC: ED 00:04
DX: J02.9 Acute pharyngitis, unspecified (principal); Z20.2 Contact with and (suspected) exposure to infections with a predominantly sexual mode of transmission; F17.200 Nicotine dependence, unspecified, uncomplicated; Z90.711 Acquired absence of uterus with remaining cervical stump; Z98.890 Other specified postprocedural states; Z79.899 Other long term (current) drug therapy

== ENCOUNTER 2021-10-20 13:20 | Emergency (ER) | payer OTHER ==
[~2021-10-20] VITALS: Ht 162.5 cm; Wt 92.1 kg
[2021-10-20 14:18] LABS: BASO % 0.3 % (0.0-1.0); EOS # 0.2 10*3/uL (0.0-0.4); HEMATOCRIT 41.4 % (37.0-47.0); LYMPH # 1.4 10*3/uL (1.3-4.4); LYMPH % 16.1 % (27.0-41.0); MEAN CELL VOLUME 91.6 fl (81.0-99.0); MEAN CORPUSCULAR HGB 31.6 pg (27.0-31.0); MEAN CORPUSCULAR HGB CONC 34.5 g/dl (33.0-37.0); MONO # 0.7 10*3/uL (0.1-1.0); MONO % 8.2 % (3.0-9.0); NEUT # 6.5 10*3/uL (2.3-7.9); NEUT % 73.2 % (47.0-73.0); PLATELET COUNT AUTOMATED 311 10*3/uL (130-400); RED BLOOD COUNT 4.52 10*6/uL (4.10-5.10); RED CELL DISTRI WIDTH 11.3 % (0-14.5); WHITE BLOOD COUNT 8.9 10*3/uL (4.8-10.8)
[2021-10-20 14:40] LABS: ACT PARTIAL THROMBO TIME 29.8 SECONDS (20.0-32.1)
[2021-10-20 14:45] LABS: ALKALINE PHOSPHATASE 74 U/L (45-117); BUN 6 mg/dl (7-24); CHLORIDE 103 mmol/L (98-107); CREATININE 0.79 mg/dL (0.55-1.02); POTASSIUM 3.9 mmol/L (3.5-5.1); SGOT/AST 13 IU/L (3-35); SGPT/ALT 20 U/L (12-78); SODIUM 135 mmol/L (136-145); TOTAL PROTEIN 7.6 gm/dL (6.4-8.2)
== END 2021-10-20 15:18 | disposition home or self-care (01) ==
LOC: ED 13:20
PROVIDERS: Emergency Medicine
DX: K29.70 Gastritis, unspecified, without bleeding (principal); R19.7 Diarrhea, unspecified; F41.9 Anxiety disorder, unspecified; F31.9 Bipolar disorder, unspecified; Z79.2 Long term (current) use of antibiotics; Z79.899 Other long term (current) drug therapy; Z90.710 Acquired absence of both cervix and uterus; Z87.891 Personal history of nicotine dependence

== ENCOUNTER 2021-10-22 22:23 | Emergency (ER) | payer OTHER ==
[~2021-10-22] VITALS: Wt 90.7 kg
[2021-10-22 23:57] LABS: BASO % 0.3 % (0.0-1.0); EOS % 0.5 % (1.0-4.0); LYMPH # 1.4 10*3/uL (1.3-4.4); LYMPH % 20.8 % (27.0-41.0); MEAN CORPUSCULAR HGB 31.7 pg (27.0-31.0); MEAN CORPUSCULAR HGB CONC 33.3 g/dl (33.0-37.0); MEAN PLATELET VOLUME 10.2 fl (9.6-12.3); MONO # 0.7 10*3/uL (0.1-1.0); MONO % 10.1 % (3.0-9.0); NEUT # 4.5 10*3/uL (2.3-7.9); NEUT % 68.1 % (47.0-73.0); PLATELET COUNT AUTOMATED 260 10*3/uL (130-400); RED BLOOD COUNT 4.42 10*6/uL (4.10-5.10); RED CELL DISTRI WIDTH 11.3 % (0-14.5); WHITE BLOOD COUNT 6.5 10*3/uL (4.8-10.8)
[2021-10-23 00:12] LABS: ALKALINE PHOSPHATASE 63 U/L (45-117); BUN 8 mg/dl (7-24); CHLORIDE 104 mmol/L (98-107); CREATININE 0.89 mg/dL (0.55-1.02); POTASSIUM 4.3 mmol/L (3.5-5.1); SGOT/AST 11 IU/L (3-35); SGPT/ALT 17 U/L (12-78); SODIUM 137 mmol/L (136-145); TOTAL PROTEIN 7.2 gm/dL (6.4-8.2)
[2021-10-23 01:19] LABS: BILIRUBIN Negative (Negative); BLOOD 1+ (Negative); CLARITY Clear (Clear); COLOR Yellow (Yellow); GLUCOSE Negative (Negative); KETONE Trace (Negative); LEUKO ESTERASE Negative (Negative); NITRITE Negative (Negative); PH 5.5 (4.5-8.0); UROBILINOGEN 0.2 E.U./dl (0.0-1.0)
[2021-10-23 01:33] LABS: RBC 0-2 rbc/hpf (0-2); WBC 0-2 wbc/hpf (0-5)
== END 2021-10-23 06:42 | disposition home or self-care (01) ==
LOC: ED 22:23
PROVIDERS: Emergency Medicine
DX: U07.1 COVID-19 (principal); R19.7 Diarrhea, unspecified; Z79.899 Other long term (current) drug therapy; Z90.710 Acquired absence of both cervix and uterus; Z98.890 Other specified postprocedural states; Z87.891 Personal history of nicotine dependence

== ENCOUNTER 2023-09-26 12:41 | Emergency (ER) | payer OTHER ==
[~2023-09-26] VITALS: Ht 162.5 cm; Wt 95.3 kg
[2023-09-26] MEDS ORDERED: KLONOPIN1 M1 PO (14:52)
[2023-09-26] MEDS ORDERED: PILOCARPINE HCL5 MG PO (14:53)
[2023-09-26] MEDS ORDERED: ADDERALL 30 MG30 MG PO (14:54)
[2023-09-26] MEDS ORDERED: Ketorolac Tromethamine 15 MG/ML VIAL IV ONE (15:05)
[2023-09-26] MEDS ORDERED: SODIUM CHLORIDE 0.9% 1,000 ML IV ONE (15:05)
[2023-09-26 15:24] LABS: BILIRUBIN Negative (Negative); BLOOD Trace-Lysed (Negative); CLARITY Clear (Clear); COLOR Yellow (Yellow); GLUCOSE Negative (Negative); KETONE Negative (Negative); LEUKO ESTERASE Negative (Negative); NITRITE Negative (Negative); PH 5.5 (4.5-8.0); SPECIFIC GRAVITY 1.015 (1.001-1.030)
[2023-09-26 15:38] LABS: BASO % 0.5 % (0.0-1.0); EOS # 0.2 10*3/uL (0.0-0.4); EOS % 2.4 % (1.0-4.0); HEMATOCRIT 41.7 % (37.0-47.0); LYMPH # 1.5 10*3/uL (1.3-4.4); LYMPH % 20.5 % (27.0-41.0); MEAN CELL VOLUME 93.1 fl (81.0-99.0); MEAN CORPUSCULAR HGB 31.9 pg (27.0-31.0); MEAN CORPUSCULAR HGB CONC 34.3 g/dl (33.0-37.0); MEAN PLATELET VOLUME 9.9 fl (9.6-12.3); MONO # 0.5 10*3/uL (0.1-1.0); MONO % 6.1 % (3.0-9.0); NEUT # 5.3 10*3/uL (2.3-7.9); NEUT % 70.4 % (47.0-73.0); PLATELET COUNT AUTOMATED 289 10*3/uL (130-400); RED BLOOD COUNT 4.48 10*6/uL (4.10-5.10); RED CELL DISTRI WIDTH 13.4 % (0-14.5); WHITE BLOOD COUNT 7.5 10*3/uL (4.8-10.8)
[2023-09-26 15:39] LABS: WBC 0-2 wbc/hpf (0-5)
[2023-09-26 15:57] LABS: BUN 7 mg/dl (9-23); CHLORIDE 109 mmol/L (98-107); POTASSIUM 3.6 mmol/L (3.4-5.1)
[2023-09-26] MEDS ORDERED: Ceftriaxone Sodium 1 GM/10 ML SYR IV ONE (16:50)
[2023-09-26] MEDS ORDERED: Ondansetron4 MG PO (17:42)
[2023-09-26] MEDS ORDERED: AMOX-CLAV 875-1 EACH PO (17:42)
== END 2023-09-26 17:50 | disposition home or self-care (01) ==
LOC: ED 12:41
PROVIDERS: Nurse Practitioner Family
DX: L03.115 Cellulitis of right lower limb (principal); L03.116 Cellulitis of left lower limb; F32.A Depression, unspecified; F17.200 Nicotine dependence, unspecified, uncomplicated; Z79.899 Other long term (current) drug therapy; Z90.710 Acquired absence of both cervix and uterus